=== PATIENT | female | born 1980 | race Caucasian/White ===

== ENCOUNTER → 2017-08-14 | Outpatient (CLI) | payer OTHER | END | disposition home or self-care (01) | LOC: LAB.O 07:35 | PROVIDERS: ATTEND Obstetrics & Gynecology | DX: Z01.411 Encounter for gynecological examination (general) (routine) with abnormal findings (principal) ==

== ENCOUNTER 2017-12-11 08:44 | Emergency (ER) | payer OTHER ==
[2017-12-11 08:54] VITALS: TEMP 98.5
--- NOTE | 2017-12-11 09:00 | ED.PDOC ---
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 NAUSEA DIARRHOEA ONSET 4-5 DAYS DENIES FEVER CHILLS NO DYSURIA NO BLOOD OR MUCOUS IN STOOLS SHE HAS GERD OTHERWISE IN [facility] - History of Present Illness Abdominal Pain Onset Location: RUQ Pain Radiation: no radiation Quality: moderate Timing/Duration: 1 week Worsening Factors: nothing Associated Symptoms: denies symptoms Review of Systems - Review of Systems Constitutional: States: no symptoms reported EENTM: States: no symptoms reported Respiratory: States: no symptoms reported Cardiology: States: no symptoms reported Gastrointestinal/Abdominal: States: see HPI Genitourinary: States: no symptoms reported Musculoskeletal: States: no symptoms reported Skin: States: no symptoms reported Neurological: States: no symptoms reported Endocrine: States: no symptoms reported Hematologic/Lymphatic: States: no symptoms reported Past Medical History (General) - Patient Medical History Hx Diabetes: No Hx Gastroesophageal Reflux: Yes Surgical History: other - Vaccination History Hx Tetanus, Diphtheria Vaccination: Yes Hx Influenza Vaccination: Yes Hx Pneumococcal Vaccination: No - Social History Hx Tobacco Use: No Hx Alcohol Use: No Hx Substance Use: No Hx Substance Use Treatment: No - Female History Patient is a Female of Child Bearing Age (10 -59 yrs old): Yes - Triage Comment ED Triage Comment: LMP- one week ago Family Medical History - Family History Mother Family History: Unknown Physical Exam - Physical Exam General Appearance: Comfortable Eyes, Ears, Nose, Throat Exam: PERRL/EOMI, normal ENT inspection, TMs normal Neck: non-tender, full range of motion, supple, normal inspection Respiratory: chest non-tender, lungs clear, normal breath sounds Cardiovascular/Chest: normal peripheral pulses, regular rate, rhythm, no edema, no gallop Gastrointestinal/Abdominal: normal bowel sounds, non tender, soft, no organomegaly, no pulsatile mass Extremity: normal range of motion, non-tender Progress - Results/Orders Results/Orders: Laboratory Tests 12/11/17 12/11/17 09:18 09:18 WBC 7.1 RBC 4.99 Hgb 14.4 Hct 42.5 MCV 85.3 MCH 28.8 MCHC 33.7 RDW 13.8 Plt Count 289 MPV 9.2 Absolute Neuts (auto) 5.10 Absolute Lymphs (auto) 1.50 Absolute Monos (auto) 0.30 Absolute Eos (auto) 0.10 Absolute Basos (auto) 0.10 Neutrophils % 71.5 Lymphocytes % 21.7 Monocytes % 4.8 Eosinophils % 1.0 Basophils % 1.0 Sodium 138 Potassium 4.3 Chloride 106 Carbon Dioxide 26 Anion Gap 10.3 L BUN 11 Creatinine 0.72 BUN/Creatinine Ratio 15.3 Random Glucose 96 Serum Osmolality 274.9 L Calcium 9.2 Total Bilirubin 0.5 AST 16 ALT 13 Alkaline Phosphatase 51 Serum Total Protein 7.4 Albumin 4.3 Globulin 3.1 Albumin/Globulin Ratio 1.4 Amylase 45 Lipase 22 Departure - Departure Clinical Impression: Abdominal pain Time of Disposition: 11:41 Disposition: Discharge to Home or Self Care Condition: Good Departure Forms: ED Discharge - Pt. Copy, Patient Portal Self Enrollment Instructions: DI for Abdominal Pain-Adult Diet: low fat, low cholesterol Activity: walking as tolerated Referrals: JENNIFFER LESLIE IV, [facility] [Primary Care Provider] - 1-2 Weeks Prescriptions: Acetamin W/Cod #3 Tab [Tylenol w/CODEINE #3] 1 ea PO Q6HR PRN #40 tab PRN Reason: Mild To Moderate Pain Home Medications: Ambulatory Orders Acetamin W/Cod #3 Tab [Tylenol w/CODEINE #3] 1 ea PO Q6HR PRN #40 tab 12/11/17 Lansoprazole [Prevacid] 30 mg PO DAILY 12/11/17
[2017-12-11] MEDS ORDERED: HYDROcodone 10MG/APAP 325MG 1 EA TAB PO ONE (10:53)
--- NOTE | 2017-12-11 11:15 | US ---
EXAM DESCRIPTION: Gall Bladder CLINICAL HISTORY: RUQ PAIN COMPARISON: None. TECHNIQUE: Real-time sonographic images of the right upper quadrant of the abdomen are obtained. FINDINGS: Pancreas is note well visualized. The right lobe of the liver measures 17.4cm. The liver is diffusely homogeneous and normal in echogenicity. No focal hepatic mass is seen. The gallbladder is poorly distended. There is 5.5 mm focus of increased echogenicity without posterior acoustic shadowing involving the anterior wall of the lower gallbladder. No gallbladder wall thickening or pericholecystic fluid is seen. The common bile duct measures 5 mm in greatest diameter. The right kidney measures 11.7 cm and is unremarkable. Visualized IVC and abdominal aorta are within normal limits. IMPRESSION: Mild hepatomegaly. Small 5.5 mm probable gallbladder polyps versus less likely adherent nonshadowing gallstone in the anterior lower fundus of the gallbladder. Recommend follow-up imaging in 6-12 months. Electronically signed by: Wale Ames MD 12/11/2017 11:11 AM CDT
[2017-12-11 11:36] VITALS: O2SAT 100
[2017-12-11 11:51] VITALS: BP 131/82
== END 2017-12-11 11:51 | disposition home or self-care (01) ==
LOC: ER 08:44
DX: R10.9 Unspecified abdominal pain (principal); K21.9 Gastro-esophageal reflux disease without esophagitis